=== PATIENT | male | born 1950 | race Caucasian/White ===

== ENCOUNTER 2018-01-18 10:48 | Day surgery (SDC) | payer MEDICARE, OTHER, SELFPAY ==
[2018-01-18 11:05] VITALS: BP 125/72; PULSE 85; RESP 16; TEMP 36.4; O2SAT 100; BMI 27.6
[2018-01-18 12:55] VITALS: BP 125/72; BP 91/43; PULSE 63; RESP 14; TEMP 36.3; O2SAT 98
--- NOTE | 2018-01-18 12:55 | PCM.HP.STD ---
Problem List (1) Screening for colon cancer Status: Acute History of Present Illness Date of Admission: 01/18/18 The patient is a 67 year old M who presents for screening colonoscopy. Past Medical History Allergies acetaminophen [From Contac Cold-Flu Day and Night] Allergy (Verified 01/17/18 14:40) Hives chlorpheniramine [From Contac Cold-Flu Day and Night] Allergy (Verified 01/17/18 14:40) Hives phenylephrine [From Contac Cold-Flu Day and Night] Allergy (Verified 01/17/18 14:40) Hives Home Medications: Ambulatory Orders Medication Instructions Recorded Levothyroxine Sodium [Synthroid] 75 mcg PO QHS 01/17/18 Rosuvastatin Calcium [Crestor] 10 mg PO QHS 01/17/18 Smoking Status: Never smoker Tobacco Use: Non-smoker - *Family History Maternal History Items: No pertinent history Review of Systems HEENT: Denies: Dysphasia, Ear Pain, Eye Pain, Head Aches, Hearing Changes, Sore Throat Cardiovascular: Denies: Chest Pain, Chest Pressure, Chest Tightness, Palpitations Respiratory: Denies: Cough, Hemoptysis, Shortness of breath at rest, Shortness of breath upon exertion, Wheezing Gastrointestinal: Denies: Abdominal Pain, Constipation, Diarrhea, Hematemesis, Nausea, Melena, Vomiting VTE Information - Inpt Only VTE Present on Admission: No VTE Mechan Device Prophylaxis: None VTE Pharm Prophylaxis ordered?: No Reason prophylaxis not ordered:: Treatment Not Indicated Patient Problems: Active and Suspected Problems Screening for colon cancer (Acute) - Physical Exam General: Alert, Oriented x3 Neck: Supple, No JVD Lungs: Clear to auscultation Cardiovascular: Regular rate, Regular Rhythm, No murmurs Abdomen: Bowel Sounds Present, Soft, Non Tender, Non-Distended Vital Signs Temp Pulse Resp BP Pulse Ox 97.6 F L 85 16 125/72 H 100 01/18/18 11:05 01/18/18 11:05 01/18/18 11:05 01/18/18 11:05 01/18/18 11:05 Oxygen Delivery Method Room Air Weight: 171 lb 4.787 oz Body Mass Index (BMI) 27.6 Assessment/Plan All Active Problems Screening for colon cancer (Acute) My plan is to perform a colonoscopy on the patient.
--- NOTE | 2018-01-18 12:59 | OP.ENDO_ITS ---
Patient Name: Pk Back Procedure Date: 01/18/2018 12:25 PM Date of : 1950 Age: 67 Procedure: Colonoscopy Indications: Screening for colorectal malignant neoplasm Providers: Jack Mejia MD Referring MD: Jack Mejia MD Medicines: See the Anesthesia note for documentation of the administered medications Patient Profile: This is a 67 year old male. Refer to note in patient chart for documentation of history and physical. Last Colonoscopy: more than 10 years ago. Complications: No immediate complications. Procedure: Pre-Anesthesia Assessment: - Prior to the procedure, a History and Physical was performed, and patient medications and allergies were reviewed. The patient's tolerance of previous anesthesia was also reviewed. The risks and benefits of the procedure and the sedation options and risks were discussed with the patient. All questions were answered, and informed consent was obtained. Prior Anticoagulants: The patient has taken no previous anticoagulant or antiplatelet agents. ASA Grade Assessment: II - A patient with mild systemic disease. After reviewing the risks and benefits, the patient was deemed in satisfactory condition to undergo the procedure. After I obtained informed consent, the scope was passed under direct vision. Throughout the procedure, the patient's blood pressure, pulse, and oxygen saturations were monitored continuously. The adult colonoscope was introduced through the anus and advanced to 5 cm into the ileum. The colonoscopy was performed without difficulty. The patient tolerated the procedure well. The quality of the bowel preparation was good. Scope In: 12:37:55 PM Scope Withdrawal Time 0 hours 7 minutes 44 seconds Scope Out: 12:52:09 PM Total Procedure Duration Time 0 hours 14 minutes 14 seconds Findings: The perianal and digital rectal examinations were normal. The exam was otherwise without abnormality on direct and retroflexion views. Impression: - The examination was otherwise normal on direct and retroflexion views. - No specimens collected. Recommendation: - Discharge patient to home. - Resume previous diet. - Continue present medications. - Repeat colonoscopy in 10 years for screening purposes. - Return to primary care physician (date not yet determined). Procedure Code(s): --- Professional --- G0121, Colorectal cancer screening; colonoscopy on individual not meeting criteria for high risk Diagnosis Code(s): --- Professional --- Z12.11, Encounter for screening for malignant neoplasm of colon CPT copyright 2017 [employer]. All rights reserved. The codes documented in this report are preliminary and upon braille coder review may be revised to meet current compliance requirements. MD Jack Mclaughlin MD 01/18/2018 12:58:53 PM This report has been signed electronically. Number of Addenda: 0 Note Initiated On: 01/18/2018 12:25 PM
[2018-01-18 13:00] VITALS: BP 125/72; BP 95/45; PULSE 66; RESP 14; O2SAT 99
[2018-01-18 13:05] VITALS: BP 101/50; BP 125/72; PULSE 60; RESP 14; O2SAT 99
[2018-01-18 13:10] VITALS: BP 103/44; BP 125/72; PULSE 58; RESP 16; O2SAT 100
[2018-01-18 13:25] VITALS: BP 125/72
== END 2018-01-18 13:41 | disposition home or self-care (01) ==
LOC: EN 10:51 → AC 10:54
PROVIDERS: Referring Provider Surgery; Visit Provider Surgery
PROC: 0DJD8ZZ Inspection of Lower Intestinal Tract, Via Natural or Artificial Opening Endoscopic (ICD-10-PCS; CPT 45378; principal; 2018-01-18 11:55)
DX: Z12.11 Encounter for screening for malignant neoplasm of colon (principal)
CPT/HCPCS: G0121; J7120

== ENCOUNTER 2019-07-20 07:42 | Day surgery (SDC) | payer MEDICARE, OTHER, SELFPAY ==
[2019-04-25 09:02] VITALS: BMI 27.6
[2019-07-20] VITALS (7 sets, daily range): BP systolic 91–127; BP diastolic 44–73; PULSE 58–71; RESP 16; TEMP 36.3–36.6; O2SAT 96–100; BMI 27.6
[2019-07-20] MEDS: Lactated Ringers 1,000 ML 100 ML IV (08:07)
--- NOTE | 2019-07-20 08:45 | EGD_PTH ---
PATIENT: ODIN NAVARRETE LOC: EN U#:[id number] AGE/SX: 69/M ROOM: RE07/20/[address]: Dr. Oniel Khan MD : 1950 BED: DIS: 07/20/2019 SPEC #: [id number] RECD: 07/20/19 12:22 STATUS: DENNIS MAGDY #: [id number] MIGNON: 07/20/19 08:[address]: Oniel Khan DEPT: SURGICAL PATHOLOGY RECD BY: Alfredo Jeong ENTERED: 07/23/19 11:22 SP TYPE: EGD BIOPSY OT DR: Dr. Danny Tyson MD Tissues: Gastric mucous membrane Procedures: Surgery Specimen Level IV HEADER OPERATION: [place] [place] PRE[place]OP DIAGNOSIS: Epigastric pain TISSUE SUBMITTED: Antrum biopsy for histo and H. pylori MICROSCOPIC DIAGNOSIS Antrum biopsy: Mild to moderate gastritis. See microscopic description and comment. SJ:vania 07/24/19 COMMENT The results of immunohistochemistry for Helicobacter pylori will be reported separately ([id number]). MICROSCOPIC DESCRIPTION Slides are reviewed. The specimen shows fragments of gastric mucosa with chronic inflammatory cell infiltrates in the lamina propria consisting of lymphocytes and plasma cells, consistent with mild to moderate chronic gastritis. GROSS DESCRIPTION Received in fixative is one container labeled with the patient's name and designated antrum biopsy. The specimen consists of two irregular fragments of light burns soft tissue that in aggregate measure 0.4 x 0.3 x 0.1 cm. The specimen is totally submitted in one cassette. / CATINA:vania 07/23/19 TC:3 CPT: 62853
--- NOTE | 2019-07-20 08:45 | IMM_PTH ---
PATIENT: ODIN NAVARRETE LOC: EN U#:[id number] AGE/SX: 69/M ROOM: RE07/20/[address]: Dr. Oniel Khan MD : 1950 BED: DIS: 07/20/2019 SPEC #: [id number] RECD: 07/23/19 09:52 STATUS: DENNIS REBrandyn #: [id number] MIGNON: 07/20/19 08:[address]: Oniel Khan DEPT: IMMUNOHISTOCHEMISTRY RECD BY: Diana Sanchez ENTERED: 07/23/19 09:53 SP TYPE: IMMUNO OTHR DR: Dr. Danny Tyson MD Tissues: Stomach, NOS Procedures: H Pylori (initial) PHYSICIAN & INSTITUTION [place] [id number] SPECIMEN INFORMATION: Tissue Source: Antrum biopsy Clinical Info: Epigastric pain Specimen Number: [id number] CPT code: 06234 METHODOLOGY: Deparaffinized sections of prefer/formalin-fixed tissue or PAP/DQ stained slides are incubated with monoclonal/polyclonal antibodies/oligonucleotide probes. Localization is made via biotin free immunoperoxidase method. Appropriate controls are performed and reacted as expected. Results on target cell population are indicated in the following table: RESULTS: ANTIBODY / CLONE RESULT H Pylori (polyclonal) negative These tests were developed and their performance characteristics determined by [facility]. They may not have been cleared or approved by the U.S. Food and Drug Administration. The FDA has determined that such clearance or approval is not necessary. INTERPRETATION: Antrum, biopsy: Negative for Helicobacter pylori organisms. SJ:vania 07/25/19
--- NOTE | 2019-07-20 08:50 | HP.PCM_ITS ---
Problem List (1) Epigastric pain Status: Acute History of Present Illness Date of Admission: 07/20/19 The patient is a 69 year old M with epigastric pain. The patient reports that his epigastric pain started months ago. I saw him in April and started him on a PPI and Carafate. He reported improvement in his symptoms once he stopped the Carafate as symptoms return. He is still having ongoing right upper quadrant and epigastric pain. Past Medical History Medical History: Medical History (Last Reviewed 03/26/19 @ 09:25 by Yoly Crane) Epigastric pain R10.13 High cholesterol E78.00 Hypothyroid E03.9 Allergies acetaminophen [From Contac Cold-Flu Day and Night] Allergy (Verified 07/20/19 08:01) Hives chlorpheniramine [From Contac Cold-Flu Day and Night] Allergy (Verified 07/20/19 08:01) Hives phenylephrine [From Contac Cold-Flu Day and Night] Allergy (Verified 07/20/19 08:01) Hives Home Medications: Ambulatory Orders Medication Instructions Recorded Levothyroxine Sodium [Synthroid] 75 mcg PO QHS 01/17/18 Rosuvastatin Calcium [Crestor] 10 mg PO QHS 01/17/18 cholecalciferol (vitamin D3) 100 4,000 unit PO DAILY 03/26/19 mcg (4,000 unit) capsule coenzyme Q10 75 mg capsule 75 mg PO DAILY 03/26/19 omega-3 fatty acids 1,000 mg 1,000 mg PO DAILY 03/26/19 capsule zinc 50 mg tablet 50 mg PO DAILY 03/26/19 pantoprazole 40 mg tablet,delayed 40 mg PO DAILY #60 tab 06/19/19 release sucralfate 1 gram tablet 1 g PO QACHS #120 tab 06/19/19 Surgical History: Surgical History (Last Reviewed 03/26/19 @ 09:25 by Yoly Crane) S/P bilateral inguinal hernia repair Z98.890, Z87.19 Smoking Status: Never smoker Tobacco Use: Non-smoker - *Family History Maternal History Items: No pertinent history Review of Systems Constitutional: Denies: Anorexia, Fever HEENT: Denies: Difficulty Swallowing Respiratory: Denies: Cough, Shortness of Breath, Shortness of breath at rest Gastrointestinal: Reports: Abdominal Pain. Denies: Nausea Skin: Denies: Jaundice Endocrine: Denies: Change in Body Habitus VTE Information - Inpt Only VTE Present on Admission: No VTE Mechan Device Prophylaxis: SCD's Patient Problems: Active and Suspected Problems (Last Reviewed 03/26/19 @ 09:25 by Yoly Crane) Epigastric pain (Acute) - Physical Exam Vitals/I&O's: Vital Signs Temp Pulse Resp BP Pulse Ox 97.8 F 65 16 127/73 H 99 07/20/19 08:02 07/20/19 08:02 07/20/19 08:02 07/20/19 08:02 07/20/19 08:02 Oxygen Delivery Method Room Air Weight: 166 lb 0.129 oz Body Mass Index (BMI) 27.6 General: Alert, Oriented x3 Neck: No JVD Lungs: Normal air movement Cardiovascular: Regular rate, Regular Rhythm Abdomen: Soft, Non Tender, Non-Distended Microbiology Past 72 Hours 07/19/19 10:40 Mucosa - Nasopharyngeal Coronavirus COVID-19 PCR - Final Current Medications Lactated Ringer's () 1,000 mls @ 100 mls/hr IV .Q10H JAQUELINE Last Admin: 07/20/19 08:07 Dose: 100 mls/hr Documented by: Assessment/Plan All Active Problems (Last Reviewed 03/26/19 @ 09:25 by Yoly Crane) Epigastric pain (Acute) Screening for colon cancer (Acute) 69-year-old male with epigastric pain 1. I recommend the patient undergo EGD to rule out stomach etiology as his epigastric pain. If not I may proceed with ultrasound of the gallbladder. 2. I explained endoscopy in detail to the patient. I explained the risks including but not limited to stroke or heart attack with anesthesia, perforation of the GI tract, bleeding, infection. I explained that any of these could necessitate further emergency surgery. The patient understands and all questions were answered sufficiently. The patient wishes to proceed with procedure. 3. We discussed the current risks associated with COVID-19. While it is understood that there is a community spread of COVID-19, the risk of sonya COVID-19 while at [facility] ([facility]) is very low; however, the risk cannot be completely mitigated because of the community spread of the disease. We discussed in detail the risk of exposure to and/or potential harm posed by the COVID-19 virus with having a surgery/procedure at this time versus the risk of delaying the surgery/procedure. It is not possible to know either the risk of delaying the surgery or procedure or chance of getting an infection with perfect accuracy, but a joint decision was made to proceed at this time with the scheduled surgery/procedure as indicated on the consent form. Patient was notified that we will need to comply with any screening or testing [facility] wishes to perform or that surgery may be delayed for any positive results. Oniel Khan MD Pager: [facility] [address] [place] [address] [address] [place] [address] Office:
--- NOTE | 2019-07-20 09:10 | OP.CCLET_ITS ---
07/20/2019 Danny Tyson Re : Upper GI endoscopy procedure for Pk Back Dear Marbella This procedure was performed on Saturday, July 20, 2019. My impressions and recommendations are as follows: Impressions : - Normal esophagus. - Normal stomach. - Normal examined duodenum. - Biopsies were taken with a cold forceps for Helicobacter pylori testing. Recommendations : - Await pathology results. - Perform a RUQ ultrasound at appointment to be scheduled. - Continue present medications. My findings are described in the full procedure note, which is enclosed. If I can be of further assistance, please feel free to contact me at Doctor phone number(s): , Work: . Sincerely, Oniel Khan MD 07/20/2019 9:10:00 AM This report has been signed electronically.
--- NOTE | 2019-07-20 09:10 | OP.EGD_ITS ---
Patient Name: Pk Back Procedure Date: 07/20/2019 8:56 AM Date of : 1950 Age: 69 Procedure: Upper GI endoscopy Indications: Epigastric abdominal pain, Abdominal pain in the right upper quadrant Providers: Oniel Khan MD Referring MD: Danny Tyson Medicines: Monitored Anesthesia Care Patient Profile: This is a 69 year old male. Refer to note in patient chart for documentation of history and physical. Complications: No immediate complications. Estimated blood loss: Minimal. Procedure: Pre-Anesthesia Assessment: - Prior to the procedure, a History and Physical was performed, and patient medications and allergies were reviewed. The patient's tolerance of previous anesthesia was also reviewed. The risks and benefits of the procedure and the sedation options and risks were discussed with the patient. All questions were answered, and informed consent was obtained. Prior Anticoagulants: The patient has taken no previous anticoagulant or antiplatelet agents. After reviewing the risks and benefits, the patient was deemed in satisfactory condition to undergo the procedure. After obtaining informed consent, the endoscope was passed under direct vision. Throughout the procedure, the patient's blood pressure, pulse, and oxygen saturations were monitored continuously. The gastroscope was introduced through the mouth, and advanced to the second part of duodenum. The upper GI endoscopy was accomplished without difficulty. The patient tolerated the procedure well. Scope In: 9:04:05 AM Scope Out: 9:06:08 AM Total Procedure Duration Time 0 hours 2 minutes 3 seconds Findings: The esophagus was normal. The stomach was normal. The examined duodenum was normal. Biopsies were taken with a cold forceps in the gastric antrum for Helicobacter pylori testing. Impression: - Normal esophagus. - Normal stomach. - Normal examined duodenum. - Biopsies were taken with a cold forceps for Helicobacter pylori testing. Recommendation: - Await pathology results. - Perform a RUQ ultrasound at appointment to be scheduled. - Continue present medications. Procedure Code(s): --- Professional --- 61210, Esophagogastroduodenoscopy, flexible, transoral; with biopsy, single or multiple Diagnosis Code(s): --- Professional --- R10.13, Epigastric pain R10.11, Right upper quadrant pain CPT copyright 2017 [employer]. All rights reserved. The codes documented in this report are preliminary and upon pigment pusher review may be revised to meet current compliance requirements. Oniel Khan MD 07/20/2019 9:10:00 AM This report has been signed electronically. Number of Addenda: 0 Note Initiated On: 07/20/2019 8:56 AM
== END 2019-07-20 09:59 | disposition home or self-care (01) ==
LOC: EN 07:46 → AC 07:47
PROVIDERS: Visit Provider Surgery
PROC: 0DJ08ZZ Inspection of Upper Intestinal Tract, Via Natural or Artificial Opening Endoscopic (ICD-10-PCS; CPT 43235; principal; 2019-07-20 08:40)
DX: K29.70 Gastritis, unspecified, without bleeding (principal); R10.13 Epigastric pain; R10.11 Right upper quadrant pain; E03.9 Hypothyroidism, unspecified; E78.00 Pure hypercholesterolemia, unspecified; Z11.59 Encounter for screening for other viral diseases
CPT/HCPCS: 43239; 87635; 88305; 88342; G2023; J7120; J2405; U0002

== ENCOUNTER → 2019-07-24 08:32 | Outpatient (CLI) | payer MEDICARE, OTHER, SELFPAY ==
[2019-07-20 08:02] VITALS: BMI 27.6
--- NOTE | 2019-07-24 08:33 | US_ITS ---
STUDY: ABDOMINAL ULTRASOUND - RIGHT UPPER QUADRANT REASON FOR VISIT: Male, 69 years old abdominal pain TECHNIQUE: Ultrasound evaluation of the right upper quadrant was performed with real-time and static perkins-scale imaging. TECHNICAL QUALITY: Adequate. COMPARISON: None. FINDINGS: Liver: The liver measures 14 cm. There is normal echogenicity of the liver. The bile ducts are within normal limits. There is hepatic color flow. The direction of portal flow is hepatopetal. There is a 1.6 x 1.3 x 1.5 cm right hepatic lobe simple cyst. Gallbladder: Normal distended gallbladder. The gallbladder wall measures 2.7 mm. There is a negative sonographic Michel''s sign. There is no pericholecystic fluid. There are no gallstones. There is a 6 x 4 x 5 mm nondependent echogenic structure adherent to the gallbladder wall consistent with polyp. Common Bile Duct (C.B.D.): The common bile duct measures 1.6 mm. Pancreas: Normal size of the head of the pancreas. There is normal echogenicity . Remainder of the pancreas is obscured by bowel gas. Right Kidney: Normal size of the right kidney. The right kidney measures 10.6 cm. Normal renal cortex. The right cortex measures 1.3 cm. There is a 1.5 x 1.8 x 1.4 cm right renal midpole simple cyst. There is no right hydronephrosis. US/Gallbladder IMPRESSION: Normal gallbladder. Simple cyst seen in the right hepatic lobe and right renal midpole. Electronically Signed: Reji Reyna, at 10:42 EDT Tel , Service support ,
== END ==
PROVIDERS: Referring Provider Surgery; Visit Provider Surgery
DX: R10.11 Right upper quadrant pain (principal)
CPT/HCPCS: 76705

== ENCOUNTER → 2020-05-14 10:12 | Outpatient (CLI) | payer MEDICARE, SELFPAY ==
[2019-07-20 08:02] VITALS: BMI 27.6
--- NOTE | 2020-05-14 10:17 | NM_ITS ---
CLINICAL: 70-year-old male with reported history of right upper quadrant abdominal pain. RADIONUCLIDE HEPATOBILIARY SCINTIGRAPHY COMPARISON: Abdominal ultrasound report 07/24/2019 FINDINGS: Following the intravenous administration of 5.5 mCi of 99m Tc Mebrofenin, hepatobiliary images reveal:. 1. Relatively prompt and homogeneous radiopharmaceutical concentration is noted by a normal sized liver. No parenchymal defects are identified. 2. Gallbladder activity is identified at 30 minutes post radiopharmaceutical administration. 3. Small intestinal tract is minimally observed at 60 minutes following tracer injection. 4. Washout of the radiopharmaceutical by the hepatic parenchyma appears qualitatively normal. Cholecystokinin (0.02 ug/kg) was administered intravenously over a 30-minute period. The post CCK gallbladder ejection fraction calculated at 20 minutes following Cholecystokinin administration was noted to be 45.0 % (normal greater than 35%). During 30 minutes of post CCK imaging, there is scintigraphic evidence of refilling of the gallbladder. NM/Hepatobilliary Img w/Pharm Int IMPRESSION: 1. A gallbladder ejection fraction calculated to be greater than 35% following the administration of Cholecystokinin makes the probability of functional hepatobiliary disease (gallbladder dyskinesia) and/or organic hepatobiliary disease (chronic acalculous cholecystitis and/or cystic duct syndrome) to be low. (Shira Tom et al, Journal of Nuclear Medicine 32:1695, 1991). 2. An encountered normal gallbladder ejection fraction with refilling of the gallbladder following CCK administration may represent the presence of Sphincter of Oddi dysfunction. Correlation with Sphincter of Oddi manometry may be of benefit for further evaluation. ([employer], J Nucl Med 38:1824, 1997). Electronically Signed: Richard Brewster DO at 21:40 EST Tel , Service support ,
== END ==
PROVIDERS: Referring Provider Nurse Practitioner Family; Visit Provider Nurse Practitioner Family
DX: R10.11 Right upper quadrant pain (principal)
CPT/HCPCS: 78227; A9537; A4216; J2805

== ENCOUNTER → 2020-06-12 09:15 | Outpatient (CLI) | payer MEDICARE, SELFPAY ==
--- NOTE | 2020-06-12 09:21 | US_ITS ---
STUDY: ABDOMINAL ULTRASOUND - RIGHT UPPER QUADRANT REASON FOR VISIT: Male, 70 years old RUQ pain -- compare to us done 1 year ago TECHNIQUE: Ultrasound evaluation of the right upper quadrant was performed with real-time and static perkins-scale imaging. TECHNICAL QUALITY: Limited. Examination limited by bowel gas. COMPARISON: None. FINDINGS: Liver: The liver measures 14.8 cm. There is normal echogenicity of the liver. The bile ducts are within normal limits. There is hepatic color flow. The direction of portal flow is hepatopetal. There is no demonstrated mass lesion, there are simple cysts, largest measures 2.2 cm in the right lobe.. Gallbladder: Normal distended gallbladder. The gallbladder wall measures 1.8 mm. There is a negative sonographic Michel''s sign. There is no pericholecystic fluid. There are no gallstones, there is a nonshadowing 0.5 cm polyp. Common Bile Duct (C.B.D.): The common bile duct measures 4.6 mm. Pancreas: Visualized pancreas is sonographically normal Right Kidney: Normal size of the right kidney. The right kidney measures 10.0 x 5.3 x 3.6 cm. Normal renal cortex. The right cortex measures 1.2 cm. There is a simple 2.5 cm cyst. There is no right hydronephrosis. US/Abdomen Limited IMPRESSION: No suspicious sonographic findings, simple hepatic and right renal cysts, no specific follow-up needed. Electronically Signed: Leonard Churchill MD at 10:53 EDT , Service support ,
== END ==
PROVIDERS: Referring Provider Surgery; Visit Provider Surgery
DX: R10.11 Right upper quadrant pain (principal)
CPT/HCPCS: 76705

== ENCOUNTER 2021-08-10 14:20 | Emergency (ER) | payer MEDICARE, SELFPAY ==
[2021-08-10 14:21] VITALS: BP 115/65; PULSE 86; RESP 14; TEMP 36.8; O2SAT 97; BMI 27.2
[2021-08-10 15:18] LABS: Absolute Lymphocyte Count 0.89 X10^3/uL (0.83-4.51); Basophil# 0.03 X10^3/uL; Basophil% 0.2 % (0-1); Eosinophil# 1.88 X10^3/uL; Eosinophils% 14.7 % (0-5); Hematocrit 44.6 % (40-54); Hemoglobin 14.9 g/dL (13.0-16.5); Lymphocyte # 0.89 X10^3/ul (0.83-4.51); Mean Corp Hgb Conc 33.4 g/dL (32-36); Mean Corpuscular Hgb 30.9 pg (27.0-32.0); Mean Corpuscular Volume 92.5 fL (80-94); Mean Platelet Vol. 9.8 fl (6.2-12.0); Monocyte# 0.91 X10^3/uL; Monocyte% 7.1 % (0-10); NRBC Flagged by Analyzer 0 % (0-5); Neutrophil # 8.97 X10^3/uL (2.7-7.7); Neutrophil % 70.5 % (47-70); Platelet Count 161 K/mm3 (150-450); RBC Distribution Width CV 12.6 % (11.6-14.6); RBC Distribution Width SD 42.5 fl (35.1-43.9); Red Blood Count 4.82 M/mm3 (4.6-6.2); White Blood Count 12.8 K/mm3 (4.4-11.0)
[2021-08-10 15:31] LABS: Anion Gap 4 (5-15); BUN 32 mg/dL (7-18); BUN/Creat Ratio 31.7 RATIO (10-20); Calcium,Total 9.1 mg/dL (8.5-10.1); Chloride 106 mmol/L (98-107); Creatinine, Serum 1.01 mg/dL (0.70-1.30); EST Glomerular Filtration Rate 77 mL/min (>60); Est Glom Filt Rate - Afr Amer 94 mL/min (>60); Estimated Creatinine Clearance 60.54 ml/min; Glucose 141 mg/dL (74-106); Potassium 4.2 mmol/L (3.5-5.1); Sodium Level 137 mmol/L (136-145)
[2021-08-10 15:43] LABS: Red Blood Cells-Urine 0 SEEN /hpf (0-5); Squamous Epithelial Cells - UA 0 SEEN /hpf (0-5); White Blood Cells 0 SEEN /hpf (0-5)
[2021-08-10 16:15] LABS: Color, Urine Yellow (Yellow); Glucose, Dipstick Normal (Normal); Ketone-Dipstick 15 mg/dl (Negative); Leukocyte Esterase-Dipstick Negative /ul (Negative); Nitrite-Dipstick Negative (Negative); Occult Blood-Urine Negative /ul (Negative); Protein-Dipstick 15 mg/dl (Negative); Urine Bilirubin Dipstick Negative (Negative); Urine Clarity Clear (Clear); Urine Urobilinogen Normal (Normal)
--- NOTE | 2021-08-10 16:25 | ED.VIS.GI ---
HPI HPI - GI History of Present Illness Chief Complaint: Abd Pain Detail of Chief Complaint: Severe upper midline sharp abdominal pain Informant: patient Abdominal Pain/Flank Pain Onset: - (Patient reports abdominal pain for 3 years. Severe today after lunch) Context: Sudden Onset Timing: Intermittent Quality: Sharp Location: Epigastric Current Severity: Mild Maximum Severity: Severe Worsened by: Nothing Relieved by: Nothing Nausea/Vomiting/Emesis GI Symptom: Negative for Nausea and Vomiting Diarrhea/Melena/Hematochezia GI Symptom: Positive for Diarrhea (Diarrhea x2 weeks since placed on antibiotic for H. pylori.); Negative for Melena and Hematochezia Onset: Weeks Stool Quality: Positive for Loose Severity: Moderate Episodes: 5 Associated Symptoms Associated Symptoms: Negative for Dysuria, Frequency, Hematuria and Urgency Narrative Narrative: Patient is a 71-year-old male who presents with abdominal pain. He was recently scoped by Dr. Hanks. No abnormality noted. 2 to 3 years ago he had a colonoscopy performed by Dr. Mejia which was unremarkable and told he would not need another scope for 5 years. He presents because he had severe pain after lunch. He had very little to eat. The pain is sharp supraumbilical midline to the epigastrium. There is no radiation. There is no alleviating or precipitating factors. There is been no vomiting. Diarrhea since placed on antibiotic for H. pylori which was diagnosed by stool test. He denies cardiac or respiratory symptoms. He denies symptoms. Prior similar symptoms: Yes Recent Illness/Hospitalization: No [facility] Medical History (Updated 08/10/21 @ 17:[address] Deni Aquino MD) Epigastric pain High cholesterol Hypothyroid Home Medications levothyroxine 75 mcg PO QHS 01/17/18 [History Last Taken Unknown] rosuvastatin 10 mg PO QHS 01/17/18 [History Last Taken Unknown] cholecalciferol (vitamin D3) 100 mcg (4,000 unit) capsule 4,000 unit PO DAILY 03/26/19 [History Last Taken Unknown] coenzyme Q10 75 mg capsule 75 mg PO DAILY 03/26/19 [History Last Taken Unknown] zinc 50 mg tablet 50 mg PO DAILY 03/26/19 [History Last Taken Unknown] omeprazole 40 mg capsule,delayed release 40 mg PO DAILY #30 cap 07/22/20 [Rx Last Taken Unknown] Allergy/AdvReac Type Severity Reaction Status Date / Time acetaminophen Allergy Hives Verified 08/10/21 14:21 [From Contac Cold-Flu Day and Night] chlorpheniramine Allergy Hives Verified 08/10/21 14:21 [From Contac Cold-Flu Day and Night] phenylephrine Allergy Hives Verified 08/10/21 14:21 [From Contac Cold-Flu Day and Night] Surgical History S/P bilateral inguinal hernia repair Social History (Updated 08/10/21 @ 16:[address] Deni Aquino MD) household members: spouse Smoking Status: Never smoker substance use type: does not use ROS ROS ED Constitutional Constitutional ED: Reports weight loss and other Details: Weight loss since he was placed on antibiotics and developed diarrhea. ; Denies chills, fever(s), subjective or sweats ENT ENT ED: Denies ear pain, rhinorrhea or sore throat Cardiovascular Cardiovascular: Denies chest pain, palpitations or racing heartbeat Respiratory/Chest Respiratory/Chest: Denies cough, dyspnea or dyspnea on exertion Gastrointestinal Gastrointestinal: Reports abdominal pain, diarrhea and nausea; Denies constipation, melena or vomiting Genitourinary Genitourinary ED: Denies dysuria, hematuria or urinary frequency Musculoskeletal Musculoskeletal: Denies arthralgias, myalgias or neck pain Integumentary Denies rash Neurologic Neurologic: Denies paresthesias or weakness Endocrine Endocrinology: Denies polydipsia, polyphagia or polyuria Hematologic/Lymphatic Hematologic/Lymphatic: Denies easy bleeding or easy bruising EXAM Physical Exam Const Vital Signs: 08/10/21 14:21 Temperature 98.2 F Temperature Source Temporal Pulse Rate 86 Respiratory Rate 14 Blood Pressure 115/65 Blood Pressure Mean 81 Pulse Ox 97 Positive well nourished and well developed General Appearance ED: well developed and NAD; Negative for pallor HEENT Reports moist mucous membranes HEENT Narrative: Ears normal. Nares patent. Mucosa moist. normocephalic and atraumatic Eyes PERRL and EOMs intact bilaterally General Eye ED: Negative for pale conjunctiva or scleral icterus Neck no lymphadenopathy, supple and no JVD Resp normal respiratory effort and clear to auscultation bilaterally Cardio regular rate, regular rhythm, S1 normal heart sound, S2 normal heart sound and no murmurs GI non-tender and no masses Inspection: abdominal distention Auscultation: hypoactive bowel sounds; Negative for normoactive bowel sounds Palpation: soft; Negative for tender, guarding, rigid, hepatomegaly, splenomegaly, pulsatile mass or rebound tenderness present Back/Spine no CVA tenderness Extremity full ROM General Extremety ED: Negative for edema or tenderness General Extremity: Negative for edema Neuro CN's II-XII intact bilaterally Sensorium / Orientation: alert, oriented to person, oriented to place and oriented to time Psych mental status grossly normal and thought process normal Skin no wounds General Skin Exam: Negative for jaundice or pallor Lesions: no lesions Rashes: no rashes MDM MDM MDM Narrative Medical decision making narrative: Since patient is tachypneic and distended abdominal x-rays were obtained. Nurse protocol was initiated. White count is slightly elevated which is nondiagnostic. Differential is unremarkable. H&H is unremarkable. Basic metabolic panel is unremarkable with a normal GFR. Glucose is slightly elevated at 141. Urine is positive for ketones and specific gravity of 1.030. Patient and were told the results of his lab and x-rays Lab Data Attestation: I reviewed the patient's lab results. Labs: Laboratory Results - last 24 hr 08/10/21 08/10/21 08/10/21 15:07 15:07 15:35 WBC 12.8 H RBC 4.82 Hgb 14.9 Hct 44.6 MCV 92.5 MCH 30.9 MCHC 33.4 RDW Std Deviation 42.5 RDW Coeff of Joshua 12.6 Plt Count 161 MPV 9.8 Immature Gran % (Auto) 0.500 Neut % (Auto) 70.5 H Lymph % (Auto) 7.0 L Patrick % (Auto) 7.1 Eos % (Auto) 14.7 H Baso % (Auto) 0.2 Absolute Neuts (auto) 9.0 H Absolute Lymphs (auto) 0.89 Nucleated RBC % 0 Sodium 137 Potassium 4.2 Chloride 106 Carbon Dioxide 27.0 Anion Gap 4 L BUN 32 H Creatinine 1.01 Estim Creat Clear Calc 60.54 Est GFR (MDRD) Af Amer 94 Est GFR (MDRD) Non-Af 77 BUN/Creatinine Ratio 31.7 H Glucose 141 H Calcium 9.1 Urine Color Yellow Urine Clarity Clear Urine pH 5.0 Ur Specific [place] 1.030 Urine Protein 15 H Urine Glucose (UA) Normal Urine Ketones 15 H Urine Occult Blood Negative Urine Nitrite Negative Urine Bilirubin Negative Urine Urobilinogen Normal Ur Leukocyte Esterase Negative Urine RBC 0 SEEN Urine WBC 0 SEEN Ur Squamous Epith Cells 0 SEEN Calcium Oxalate Crystal 1+ Urine Bacteria RARE Urine Mucus 1+ Radiography Diagnostic Testing: Clinical Impression(s) from Imaging Studies Acute Abdomen Series 08/10/21 16:30 IMPRESSION: Normal x-ray examination of the chest, abdomen, and pelvis. Electronically Signed: Richard Rodrigez MD at 17:36 EDT , Abdominal series which includes a chest x-ray and 2 abdominal views reveals pleural plaques which are chronic. The cardiac silhouette and size are normal. The osseous structures unremarkable. The abdominal portion reveals an ossific gas pattern. There is no edema to the small bowel wall or colon. There is an ossific gas pattern noted. Patient does have significant mount of gas noted. Discharge Plan Triage Chief Complaint: Abd Pain ED Provider: Deni Aquino Dx/Rx/DC Orders Clinical Impression: Abdominal pain of unknown etiology, Mild dehydration, Ketosis Instructions: ED Abdominal Pain Unkn Cause Male... Prescriptions: No Action cholecalciferol (vitamin D3) 4,000 unit capsule 4,000 unit capsule 4,000 unit PO DAILY RF: 0 zinc 50 mg tablet 50 mg PO DAILY RF: 0 Ultra CoQ10 75 mg capsule 75 mg PO DAILY RF: 0 levothyroxine 75 MCG tablet 75 mcg PO QHS RF: 0 rosuvastatin 10 MG tablet 10 mg PO QHS RF: 0 omeprazole 40 mg capsule,delayed release(DR/EC) 40 mg PO DAILY Qty: 30 RF: 0 Primary Care Provider: Jaleel Daniels NP Referrals: Jaleel Daniels NP, [facility] [Primary Care Provider] - As Needed Disposition Disposition: Home, Self Care
--- NOTE | 2021-08-10 16:30 | RAD_ITS ---
STUDY: X-RAY - ACUTE ABDOMINAL SERIES REASON FOR EXAM: Male, 71 years old. Central upper pain with distention and tympany TECHNIQUE: Single view of the chest. Supine, 1 view(s) of the abdomen were obtained. COMPARISON: None. FINDINGS: The lungs are clear and expanded. Bilateral calcified pleural plaques possibly asbestos exposure. Normal size heart. Normal mediastinum and nilsa. Normal visualized pulmonary arteries. Normal visualized aortic arch and descending thoracic aorta. There is a non-specific bowel gas pattern. The soft tissue structures of the abdomen and pelvis are unremarkable. Normal visualized osseous structures. RAD/Acute Abdomen Inc Chest IMPRESSION: Normal x-ray examination of the chest, abdomen, and pelvis. Electronically Signed: Richard Rodrigez MD at 17:36 EDT ,
[2021-08-10 16:34] LABS: Bacteria RARE /hpf (None Seen); Calcium Oxalate Crystals Ur 1+ /hpf (<or=2+); Mucous, Urine 1+ /hpf (<or=2+)
[2021-08-10 17:52] VITALS: PULSE 82; RESP 17; O2SAT 98
== END 2021-08-10 17:52 | disposition home or self-care (01) ==
PROVIDERS: Emergency Provider Emergency Medicine; PCP Nurse Practitioner Family; Visit Provider Emergency Medicine
DX: R10.9 Unspecified abdominal pain (principal); E86.0 Dehydration; E87.2 Acidosis; E78.00 Pure hypercholesterolemia, unspecified; E03.9 Hypothyroidism, unspecified; Z79.899 Other long term (current) drug therapy
CPT/HCPCS: 74022; 80048; 81001; 85025; 99283; A4216

== ENCOUNTER → 2023-07-11 | Outpatient (CLI) | payer MEDICARE, SELFPAY ==
[2023-07-11 11:59] LABS: Absolute Lymphocyte Count 1.43 X10^3/uL (0.83-4.51); Absolute Neutrophil Count 3.4 X10^3/uL (2.0-7.7); Basophil# 0.05 X10^3/uL; Basophil% 0.9 % (0-1); Eosinophil# 0.18 X10^3/uL; Eosinophils% 3.2 % (0-5); Hematocrit 41.4 % (40-54); Hemoglobin 13.7 g/dL (13.0-16.5); Lymphocyte # 1.43 X10^3/ul (0.83-4.51); Mean Corp Hgb Conc 33.1 g/dL (32-36); Mean Corpuscular Hgb 30.3 pg (27.0-32.0); Mean Corpuscular Volume 91.6 fL (80-94); Mean Platelet Vol. 10.1 fl (6.2-12.0); Monocyte# 0.63 X10^3/uL; NRBC Flagged by Analyzer 0 % (0-5); Neutrophil % 59.5 % (47-70); Platelet Count 177 K/mm3 (150-450); RBC Distribution Width CV 13.2 % (11.6-14.6); RBC Distribution Width SD 43.5 fl (35.1-43.9); Red Blood Count 4.52 M/mm3 (4.6-6.2); White Blood Count 5.7 K/mm3 (4.4-11.0)
[2023-07-11 12:13] LABS: Vitamin D,25 Hydroxy 56.1 ng/mL
[2023-07-11 12:15] LABS: AST(SGOT) 22 U/L (15-37); Alanine Aminotransfer ALT/SGPT 27 U/L (16-61); Albumin, Serum 3.6 g/dL (3.2-5.0); Alkaline Phosphatase 79 U/L (45-117); Anion Gap 4 (5-15); BUN 25 mg/dL (7-18); BUN/Creat Ratio 25.9 RATIO (10-20); Calcium,Total 9.1 mg/dL (8.5-10.1); Chloride 104 mmol/L (98-107); Cholesterol 157 mg/dL (200); Creatinine, Serum 0.96 mg/dL (0.70-1.30); EST Glomerular Filtration Rate 81 mL/min (>60); Est Glom Filt Rate - Afr Amer 98 mL/min (>60); Globulin 3.5 g/dL (2.2-4.2); Glucose 94 mg/dL (74-106); High Density Lipoprotein 58 mg/dL; PSA,Total - Annual Screen 4.14 ng/mL (0.00-4.00); Potassium 4.4 mmol/L (3.5-5.1); Protein, Total 7.1 g/dL (6.4-8.2); Sodium Level 137 mmol/L (136-145); Triglycerides 91 mg/dL; Very Low Density Lipoprotein 18 mg/dL (5-40)
== END | disposition home or self-care (01) ==
LOC: BFHLAB 08:29
PROVIDERS: PCP Nurse Practitioner Family; Referring Provider Nurse Practitioner Family; Visit Provider Nurse Practitioner Family
DX: E03.9 Hypothyroidism, unspecified (principal); E78.5 Hyperlipidemia, unspecified; Z12.5 Encounter for screening for malignant neoplasm of prostate; E55.9 Vitamin D deficiency, unspecified; I10 Essential (primary) hypertension
CPT/HCPCS: 36415; 80053; 80061; 82306; 84153; 85025; G0103

== ENCOUNTER → 2023-07-20 | Outpatient (CLI) | payer MEDICARE, SELFPAY ==
[2023-07-20 13:27] LABS: T4 Free Direct 1.07 ng/dL (0.76-1.46); Thyroid Stim Hormone (TSH) 3.99 uIU/mL (0.358-3.74)
== END | disposition home or self-care (01) ==
LOC: BFHLAB 10:39
PROVIDERS: PCP Nurse Practitioner Family; Referring Provider Nurse Practitioner Family; Visit Provider Nurse Practitioner Family
DX: E03.9 Hypothyroidism, unspecified (principal)
CPT/HCPCS: 36415; 84439; 84443

== ENCOUNTER → 2024-04-02 | Outpatient (CLI) | payer OTHER, SELFPAY ==
[2024-04-02 12:55] LABS: Free T3 3.1 pg/mL (2.18-3.98); T4 Free Direct 1.21 ng/dL (0.76-1.46)
== END | disposition home or self-care (01) ==
LOC: BFHLAB 09:17
PROVIDERS: PCP Nurse Practitioner Family; Visit Provider Nurse Practitioner Family
DX: E03.9 Hypothyroidism, unspecified (principal); R97.20 Elevated prostate specific antigen [PSA]
CPT/HCPCS: 36415; 84153; 84439; 84443; 84481